=== PATIENT | female | born 1980 | race Caucasian/White ===

== ENCOUNTER 2019-02-12 13:43 | Outpatient (CLI) | payer OTHER ==
[~2019-02-12] VITALS: Ht 165.1 cm; Wt 63.4 kg
[2019-02-12] VITALS (8 sets, daily range): BP systolic 103–114; BP diastolic 56–73; PULSE 70–89
[~2019-02-12 13:43] MED LIST: ALLEGRA 180MG180 MG PO; CYMBALTA 60MG60 MG PO; MOBIC15 MG PO; PRENATAL VITAMI1 TA5 PO; PROZAC40 MG PO; SINGULAIR 110 MG/TAB PO; TYLENOL 8 HR PO; ULTRAM 50MG TAB50 MG PO
--- NOTE | 2019-02-12 14:58 | NUR ---
Report received from Tasneem Avery.Nicci,c,d,I.
[2019-02-12 15:49] LABS: GLUCOSE,CSF 46 mg/dL (40-70); TOTAL PROTEIN,CSF 38 mg/dL (15-45)
--- NOTE | 2019-02-12 16:21 | NUR ---
Dischchristie monson to pt.pt verbalizes understanding.Pt escorted out by this nurse.
[2019-02-12 18:09] LABS: CSF APPEARANCE CLEAR; CSF COLOR COLORLESS; CSF MONONUCLEAR 0 % (70-100); CSF POLYMORPHONUCLEAR 1 % (0-6); CSF RBC 0 /mm3 (0-0)
== END 2019-02-12 16:25 | disposition home or self-care (01) ==
LOC: COL.RAD 13:43
PROVIDERS: Psychiatry & Neurology Neurology
DX: G37.9 Demyelinating disease of central nervous system, unspecified (principal)

== ENCOUNTER → 2019-04-23 | Outpatient (CLI) | payer OTHER | LOC: MHCPAIN 09:52 | DX: M47.817 Spondylosis without myelopathy or radiculopathy, lumbosacral region (principal); M54.16 Radiculopathy, lumbar region | CPT/HCPCS: G0463 ==

== ENCOUNTER → 2019-05-06 | Outpatient (CLI) | payer OTHER | LOC: MHCPAIN 08:41 | DX: G57.02 Lesion of sciatic nerve, left lower limb (principal) | CPT/HCPCS: J1040 ==

== ENCOUNTER → 2019-09-30 | Outpatient (CLI) | payer OTHER | LOC: MHCPAIN 09:47 | DX: M47.817 Spondylosis without myelopathy or radiculopathy, lumbosacral region (principal); M54.5 Low back pain; M53.3 Sacrococcygeal disorders, not elsewhere classified; G89.29 Other chronic pain | CPT/HCPCS: G0463 ==